=== PATIENT | male | born 1980 | race African-American/Black ===

== ENCOUNTER 2017-03-17 16:39 | Emergency (ER) | payer SELFPAY ==
[2017-03-17] MEDS ORDERED: Acetaminophen 500 MG TAB ONE (17:37)
== END 2017-03-17 18:59 | disposition home or self-care (01) ==
LOC: ERS 16:39
DX: J10.1 Influenza due to other identified influenza virus with other respiratory manifestations (principal)
CPT/HCPCS: 99283